=== PATIENT | female | born 1950 | race Caucasian/White ===

== ENCOUNTER → 2016-05-27 | Outpatient (CLI) | payer OTHER ==
--- NOTE | 2016-05-27 18:34 | CT ---
CT Head Without Contrast History: Trauma, fall, hit face yesterday, vomiting today. Technique: Noncontrast images through the head. Soft tissue and bone window evaluation is performed. Dose reduction techniques were utilized. Findings: Some patchy hypodensity in the supratentorial white matter bilaterally is noted and consist ent with microvascular ischemic change of in nature often seen in elderly patients. There is no evide nce for hemorrhage, mass lesion, acute infarction, intracranial edema, hydrocephalus or abnormal intr acranial calcification. No subarachnoid, subdural or epidural blood is identified. There is no midlin e shift. The ambient cistern is patent. Bone window evaluation reveals normally aerated paranasal and mastoid sinuses. There is no evidence of pneumocephalus or skull fracture. 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 Impression: Nothing acute identified. Results called to Dr. Coco Baldwin at 6:30 p.m. General information for patients regarding this examination can be found at [email or web address]. If you have questions or comments about this report, please contact me at [phone] (hospital) or [phone] (cell).
== END ==
LOC: FIMAGING 17:42
PROVIDERS: ATTEND Nurse Practitioner Acute Care
DX: S09.90XA Unspecified injury of head, initial encounter (principal); R51 Headache; R11.10 Vomiting, unspecified; W01.0XXA Fall on same level from slipping, tripping and stumbling without subsequent striking against object, initial encounter

== ENCOUNTER → 2016-06-03 | Outpatient (CLI) | payer OTHER ==
--- NOTE | 2016-06-03 13:47 | CT ---
CT Scan of the Urinary Tract (Abdomen and Pelvis Without Contrast) Clinical Indications: 65-year-old female with a history of kidney stones. ICD 10 Diagnostic Codes: N23, E83.52, and E21.3. Technique: Neither oral, retrograde rectal, nor IV contrast was administered. A multidetector unenhan indra helical CT scan was obtained from the lung bases inferiorly through the proximal femora, with mik ges reformatted at 5.00 and 1.50 mm increments, and reviewed in soft tissue, lung, liver, and bone wi ndows. Parasagittal and paracoronal reconstructed images are reviewed on the workstation. The DFOV is 36.5 cm. Dose reduction techniques were utilized. Findings: Unenhanced CT Scan of the Abdomen: There is bilateral nephrolithiasis with numerous renal calcificati ons seen, predominantly in the upper and lower pole portions of each kidney. The largest on the right is seen in the lower pole, measuring 7 x 8 mm in greatest diameter, and the largest on the left is a lso seen in the lower pole measuring 5 x 5 mm in greatest diameter. There is some mild indistinctness of the left parapelvic fat which may represent some renal collecting system dilatation or parapelvic cysts; contrast-enhanced imaging would be more definitive. There are no calcifications identified wi thin the liver, pancreas, spleen, adrenal glands, ureters, or bladder. The lung bases are essentiall y clear. There is some minimal subsegmental atelectasis versus scar in the inferomedial right middle lobe. There is no pleural or pericardial effusion. The gallbladder is moderately distended. There is a small fat-containing periumbilical hernia. There is moderate constipation, with no abnormal small b owel dilatation. There is trace L4-L5 anterolisthesis, and there is severe degenerative space narrowi ng at L5-S1 where there is a vacuum disk phenomenon. The aorta tapers normally. The IVC is normal in caliber. Moderate subcutaneous obesity is present. Unenhanced CT Scan of the Pelvis: There is no pelvic mass observed. The uterus is midline. The urinar y bladder is moderately distended. There is no distal ureterolithiasis or urinary bladder calculus. T here is no free fluid or adenopathy. There is no adnexal mass. There is some degenerative change asso ciated with the sacroiliac joints. Impression: 1. Bilateral nephrolithiasis. 2. Mild parapelvic indistinctness involving the left kidney, which could be related to some caliectas is and/or parapelvic cyst(s). Contrast-enhanced CT imaging with delayed images would be more definiti ve. Attention: This CT examination is specifically designed to evaluate patients who are clinically susp ected of having acute obstructive uropathy. This examination does not use radiographic contrast, and as such, provides only a limited evaluation of the abdomen, pelvis, and retroperitoneum. If there i s further clinical suspicion for pathological conditions other than obstructive uropathy, a complete CT evaluation of the abdomen and pelvis utilizing intravenous, oral, and rectal contrast should be co nsidered.
--- NOTE | 2016-06-03 14:08 | DX ---
Two Views of the Abdomen History: Kidney stones, N23, E21.3, hyperparathyroidism Comparison: None Findings: There is bilateral upper and lower pole left for lithiasis. The largest stone is in the rig ht lower pole and measures 6.6 x 4.8 mm. 2 or 3 overlapping calcifications overlie the lower right sa jodie and are somewhat medial to correlate to the expected course of the distal right ureter. These co uld possibly represent evidence of an ovarian dermoid or calcified mesenteric lymph nodes. No stones are seen in the urinary bladder. There is chondrocalcinosis of the cartilage of the symphysis pubis. Impression: 1. Bilateral nephrolithiasis 2. No ureteral stone identified. 3. . Right pelvic calcification, discussed above.
== END ==
LOC: CIMAGING 12:50
PROVIDERS: ATTEND Specialist
DX: N20.0 Calculus of kidney (principal)

== ENCOUNTER 2016-06-09 19:00 | Emergency (ER) | payer OTHER ==
--- NOTE | 2016-06-09 19:01 | EDPHY ---
H & P HPI/ROS: CHIEF COMPLAINT: Low blood pressure, dizziness. HISTORY OF PRESENT ILLNESS: This is a 65-year-old female with a history of hypertension presenting via EMS for dizziness. She has been on Lisinopril for 7 days and has had dizziness since early this morning. The dizziness caused her to feel off-balance. She measured her blood pressure multiple times today and found to be low but she does not remember specific numbers. She fell 2 weeks ago and has had intermittent headaches since then. Monday and Monday she had multiple episodes of emesis. No vomiting or diarrhea today. She had a negative head CT May 27 after she fell and hit her head. No confusion, visual changes, numbness or weakness. She does not take anticoagulants. REVIEW OF SYSTEMS: A ten point review of systems was performed and is negative with the exception of the items mentioned in the HPI. Source: Patient Exam Limitations: No limitations - Medical/Surgical History PMH: Hypertension Parathyroid abnormality, outpatient evaluation in progress - Social History Additional Social History: She is . She and her live in [place]. She is retired. She does not use tobacco products. - Physical Exam Exam: General Appearance: Alert. Vital signs reviewed. Initial blood pressure 131/ 78. Eyes: Pupils equal and round, no conjunctival injection, no discharge. Anicteric. ENT, Mouth: Mucous membranes are moist, no oropharyngeal erythema or edema. Neck: No lymphadenopathy, supple. Respiratory: Lungs are clear to auscultation; no wheezes, rales, or rhonchi. Cardiovascular: Regular rate and rhythm; no murmur, rub, or gallop. Gastrointestinal: Abdomen is soft and nontender, no masses or organomegaly, bowel sounds normal. Skin: Warm and dry, no rashes on exposed skin, normal color. Back: Nontender to palpation over the thoracolumbar spine. No CVAT. Extremities: No lower extremity edema, no calf tenderness or swelling. Neurological: Alert and oriented. Moving all four extremities easily and equally. Cranial nerves II through XII are examined and are intact (visual acuity not tested). Strength is 5 over 5 bilaterally with testing of all major motor groups. Sensation is intact to light touch over all 4 extremities. Deep tendon reflexes are 2+ in the biceps and knees bilaterally. Gait is normal. Psychiatric: Normal affect. Constitutional: Initial Vital Signs Temperature (C) 36.6 C 06/09/16 19:20 Heart Rate 94 06/09/16 19:20 Respiratory Rate 18 06/09/16 19:20 Blood Pressure 131/78 H 06/09/16 19:20 O2 Sat (%) 93 06/09/16 19:20 O2 Delivery Mode Room Air Allergies/Adverse Reactions: Sulfa (Sulfonamide Antibiotics) Allergy (Verified 06/09/16 19:19) Home Medications: Medication Instructions Recorded Lisinopril 06/09/16 Zoloft 100mg (*) 06/09/16 Medical Decision Making ED Course/Re-evaluation: An IV was established and labs ordered. EKG ordered. Patient's mildly elevated creatinine (1.3) with a BUN of 41 suggests dehydration. NS 1L IV saline administered. 2107: Reassessed patient. She is feeling better. She has not been hypotensive in the emergency department. She is able to ambulate without feeling lightheaded. Neurologic exam remains normal. She is comfortable returning home when her daughter is here to drive her. I suspect that her hypotension is related both to her lisinopril and possibly to dehydration related to vomiting that she was experiencing day before yesterday. She is not experiencing significant headache at this time. She has not had any vomiting for over 24 hours. I am not sure what the etiology of her vomiting is--I do not think that she has a head injury that would cause prolonged vomiting (she fell last week). I suspect a viral illness with associated vomiting--which has resolved. She is scheduled to see a counselling psychologist next week and will keep this appointment. She is also undergoing workup of her parathyroid. I have advised her to contact her primary care physician, Dr. Argentina Irvin, and apprise her of today's emergency department visit. In the meantime, she will continue to check her blood pressures and record the readings. Differential Diagnosis: I considered a differential diagnosis that includes but is not limited to medication effect, dehydration/volume loss, blood loss, and head injury. - Data Points Laboratory Results: Laboratory Results 06/09/16 19:00 06/09/16 19:00 Departure - Departure Disposition: Home, Routine, Self-Care Clinical Impression: Dizziness, Dehydration, Creatinine elevation Condition: Good Instructions: Dehydration (ED), Dizziness (ED) Additional Instructions: Call your primary care provider tomorrow to set up a follow up appointment. Follow up with your counselling psychologist next week as scheduled and discussed. Return to the emergency department for any serious worsening of condition. Referrals: Argentina Irvin MD [Primary Care Provider] - As per Instructions Report Scribed for: Dianelys Aguilera Report Scribed by: Yusuf Pond Date of Report: 06/09/16 Time of Report: 21:09 Physician Review and Approval Statement: 06/09/16 19:01 Portions of this note were transcribed by the medical record specialist. I, Dr. Dianelys Aguilera, personally performed the history, physical exam, and medical decision- making; and confirmed the accuracy of the information in the transcribed note.
--- NOTE | 2016-06-09 19:32 | CPEKG ---
Heart Rate: 78 RR Interval: 769 P-R Interval: 176 QRSD Interval: 86 QT Interval: 388 QTC Interval: 442 P Cassoday: 69 QRS Cassoday: 33 T Wave Cassoday: 48 EKG Severity - NORMAL ECG - EKG Impression: SINUS RHYTHM Electronically Signed By: Dianelys Aguilera 10-Jun-2016 00:25:50
[2016-06-09 20:00] LABS: % IMMATURE GRANULYOCYTES 0.2 % (0.0-1.1); ABSOLUTE IMMATURE GRANULOCYTES 0.02 10^3/uL (0.00-0.10); ADD DIFF? NO; ADD MORPH? NO; ADD SCAN? NO; ATYPICAL LYMPHOCYTE FLAG 0 (0-99); FRAGMENT RBC FLAG 0 (0-99); HEMATOCRIT 44.4 % (38.0-47.0); HEMOGLOBIN 14.7 g/dL (12.6-16.3); LEFT SHIFT FLG 0 (0-99); LIPEMIA HEMOLYSIS FLAG 80 (0-99); MEAN CELL HEMOGLOBIN 30.1 pg (27.9-34.1); MEAN CELL HEMOGLOBIN CONCENTR. 33.1 g/dL (32.4-36.7); MEAN PLATELET VOLUME 9.6 fL (8.7-11.7); PLATELET CLUMPS FLAG 0 (0-99); PLATELET COUNT 323 10^3/uL (150-400); RED BLOOD CELL COUNT 4.88 10^6/uL (4.18-5.33); RED CELL DISTRIBUTION WIDTH 12.6 % (11.5-15.2)
[2016-06-09 20:06] LABS: ANION GAP 18 mEq/L (8-16); CALCIUM 10.3 mg/dL (8.5-10.4); CARBON DIOXIDE 22 mEq/l (22-31); CHLORIDE 102 mEq/L (97-110); CREATININE 1.3 mg/dL (0.6-1.0); GLOMERULAR FILTRATION RATE 41; GLUCOSE 101 mg/dL (70-100); POTASSIUM 4.3 mEq/L (3.5-5.2); SODIUM 142 mEq/L (134-144)
[2016-06-09 20:16] LABS: TROPONIN I < 0.012 ng/mL (0-0.034)
[2016-06-09 22:29] VITALS: BP 111/78; PULSE 88; RESP 16; TEMP 98.8; O2SAT 95
== END 2016-06-09 22:29 | disposition home or self-care (01) ==
LOC: EDUNIT#
DX: R42 Dizziness and giddiness (principal); E86.0 Dehydration; R94.4 Abnormal results of kidney function studies; I10 Essential (primary) hypertension

== ENCOUNTER → 2016-06-24 | Outpatient (CLI) | payer OTHER | LOC: FIMAGING 10:49 | PROVIDERS: ATTEND Surgery | DX: E21.0 Primary hyperparathyroidism (principal) | CPT/HCPCS: 78070; A9500 ==

== ENCOUNTER → 2016-07-19 | Outpatient (CLI) | payer OTHER | LOC: FIMAGING 08:31 | PROVIDERS: ATTEND Surgery | PROC: CW5 Nuclear Medicine, Anatomical Regions, Nonimaging Nuclear Medicine Probe (ICD-10-PCS; principal; 2016-07-19) | DX: E21.0 Primary hyperparathyroidism (principal) | CPT/HCPCS: 78808; A9500 ==

== ENCOUNTER → 2017-04-11 | Outpatient (CLI) | payer OTHER | LOC: FIMAGING 14:59 | PROVIDERS: ATTEND Internal Medicine | DX: Z12.31 Encounter for screening mammogram for malignant neoplasm of breast (principal) | CPT/HCPCS: G0202 ==

== ENCOUNTER → 2018-06-15 | Outpatient (CLI) | payer OTHER | LOC: FIMAGING 12:35 | PROVIDERS: ATTEND Internal Medicine | DX: Z12.31 Encounter for screening mammogram for malignant neoplasm of breast (principal); Z13.820 Encounter for screening for osteoporosis; M81.0 Age-related osteoporosis without current pathological fracture; Z78.0 Asymptomatic menopausal state ==